=== PATIENT | female | born 1975 | race Caucasian/White ===

== ENCOUNTER 2017-08-19 18:00 | Emergency (ER) | payer OTHER ==
[2017-08-19 18:16] VITALS: RESP 16; TEMP 98.6
--- NOTE | 2017-08-19 18:42 | CPEKG ---
Heart Rate: 56 RR Interval: 1071 P-R Interval: 188 QRSD Interval: 90 QT Interval: 440 QTC Interval: 425 P [place]: 23 QRS [place]: -32 T Wave [place]: 14 EKG Severity - OTHERWISE NORMAL ECG - EKG Impression: SINUS RHYTHM EKG Impression: LEFT AXIS DEVIATION Electronically Signed By: Johanna Cheung 19-Aug-2017 23:02:19
--- NOTE | 2017-08-19 19:51 | EDPHY ---
H & P Time Seen by Provider: 08/19/17 18:41 HPI/ROS: HPI Palpitations. 42-year-old female by private vehicle. This patient is . Her of a heart attack 6 years ago this coming Friday. She reports that for the last 2 weeks she has had intermittent sensation of palpitations yes she is following to sleep. These then go away. She also reports that sometimes she wakes up with a sensation of palpitations and feeling very panicked. She reports that during the day she has been fine but today while she was at work she felt these palpitations coming on and after this had which she thinks is a panic attack where she was short of breath felt tightness in her chest and tingling in her hands. She was seen at urgent care initially and they told her to come to the emergency department to be evaluated. She is feeling better now. ROS: Constitutional: No fever, no chills. As above. Eyes: No discharge. No changes in vision. ENT: No sore throat. No nasal congestion or rhinorrhea. Respiratory: No cough. No shortness of breath. Cardiac: No chest pain, as above. Gastrointestinal: No abdominal pain, no vomiting, no diarrhea. Genitourinary: No hematuria. No dysuria or increased frequency with urination. Musculoskeletal: No back pain. No neck pain. No myalgias or arthralgias. Skin: No rashes. Neurological: No headache. No focal weakness or altered sensation. Past medical history: No past medical history. She does not take any medications. Social history: She drinks wine socially occasionally. No IV drugs or street drugs. As above. She is here by herself. Physical Exam: General Appearance: Alert, no distress. Mildly emotionally labile. She teared up when she was talking about her . This patient is responding to questions appropriately and in full sentences. This patient appears well- hydrated and well-nourished. Eyes: Pupils equal and round no pallor or injection. No lid edema, erythema or injection. Respiratory: There are no retractions, lungs are clear to auscultation with good air movement bilaterally. Cardiovascular: Regular rate and rhythm. No murmur. Neurological: Motor sensory function is grossly intact. Cranial nerves are normal. Gait is normal. Skin: Warm and dry, no rashes. Musculoskeletal: Neck is supple and nontender. Extremities are symmetrical. All joints range without pain or impingement. Psychiatric: No agitation. No depression. Database: EKG: EKG time is 6:39 p.m.; EKG shows a narrow complex normal sinus rhythm with a ventricular rate of 56. The ND, QRS, QT intervals are within normal limits. There are no ST-T wave changes indicative of ischemic or injury pattern. No evidence of right heart strain. No evidence of WPW, Brugada syndrome, hypertrophic cardiomyopathy. Interpreted by me. Imaging: Procedures: Emergency department course: Her vital signs were reviewed and are normal. EKG was obtained and reviewed by myself as above. No red flags. I feel her presentation is secondary to anxiety. She feels comfortable going home at this time. Plan will be to prescribe her a short course of Ativan to be taken at night prior to bed. She will then follow up with her primary care physician in the next 2-3 days for re- evaluation. She feels comfortable with this plan. Return to emergency department precautions reviewed with her. All of her questions were answered. She was discharged in good condition. Differential Diagnosis: The differential diagnosis on this patient includes but is not limited to anxiety reaction, panic attack. Arrhythmia, acute coronary syndrome, CVA unlikely. This represents a partial list of diagnoses considered. These considerations are based on history, physical exam, past history, reassessment and diagnostic testing. Smoking Status: Never smoked Constitutional: Initial Vital Signs Temperature (C) 37.0 C 08/19/17 18:12 Heart Rate 67 08/19/17 18:12 Respiratory Rate 16 08/19/17 18:12 Blood Pressure 130/87 H 08/19/17 18:12 O2 Sat (%) 97 08/19/17 18:12 O2 Delivery Mode Room Air Allergies/Adverse Reactions: cephalexin Allergy (Verified 08/19/17 18:11) Home Medications: Medication Instructions Recorded Triferic 08/19/17 Departure - Departure Disposition: Home, Routine, Self-Care Clinical Impression: Anxiety reaction, Palpitations Condition: Good Instructions: Anxiety (ED), Heart Palpitations (ED) Additional Instructions: Read and follow provided instructions. Follow-up with your primary care physician in 1-2 days for re-evaluation. Take medication as prescribed only. Ativan 1 mg tablets: 1 tablet at night before bed. Do not drive on this medication. Return to the emergency department for worsening symptoms, chest pain, shortness of breath, ongoing palpitations or other serious concerns. Referrals: Cony Joel MD [Primary Care Provider] - As per Instructions
[2017-08-19] MEDS ORDERED: LORAZEPAM 1 MG PREPACK#4 BTL TAKEHOME ONE (19:52)
[2017-08-19 20:10] VITALS: BP 100/68; PULSE 55; O2SAT 100
== END 2017-08-19 20:08 | disposition home or self-care (01) ==
DX: R00.2 Palpitations (principal); F41.1 Generalized anxiety disorder